=== PATIENT | female | born 1945 | race Caucasian/White ===

== ENCOUNTER 2021-06-24 10:28 | Emergency (ER) | payer MEDICARE, MEDICAID, SELFPAY ==
[2021-06-24] VITALS (35 sets, daily range): BP systolic 123–149; BP diastolic 68–100; PULSE 78–101; RESP 9–29; TEMP 36.4; O2SAT 95–98
--- NOTE | ~2021-06-24 | XR_ITS ---
EXAMINATION: XR chest 2V DATE: 06/24/2021 11:03 INDICATION: Chest pain. Epigastric abdominal pain. TECHNIQUE: Frontal and lateral views of the chest were obtained. COMPARISON: None. FINDINGS: There are airspace opacities in the mid and lower lung zones. No pleural effusion or pneumo thorax. The heart size is normal. IMPRESSION: 1. Airspace opacities in the mid and lower lung zones, consistent with atelectasis versus pneumonia. Reviewed, dictated and finalized at location A. TECHNOLOGIST IMPRESSION: 1. Airspace opacities in the mid and lower lung zones, consistent with atelecta sis versus pneumonia.
--- NOTE | ~2021-06-24 | CT_ITS ---
EXAMINATION:CT diagnostic chest w con DATE: 06/24/2021 12:51 INDICATION: Pneumonia. TECHNIQUE: Computed tomography (CT) of the chest was performed with 75 mL Omnipaque 350 intravenous c ontrast. Automated exposure control and iterative reconstruction technique were employed. The dose-le ngth product (DLP) was 534.83 mGy-cm. COMPARISON: Chest 2 views 06/24/2021 FINDINGS: The lung volumes are small. There is mild atelectasis in the inferior lungs. There are two 4 mm nodules in right middle lobe, likely benign. No pleural effusion. The heart size is normal. Ther e are coronary artery calcifications. No pericardial effusion. There is cortical thinning of the kidn eys. There are cysts in the liver measuring up to 2.0 cm. There is severe thoracic spondylosis. There is a benign bone island in T9 vertebral body. IMPRESSION: 1. Small lung volumes with mild atelectasis in the inferior lungs. Reviewed, dictated and finalized at location A. R BOX CUTTER
--- NOTE | 2021-06-24 10:29 | ECG_ITS ---
Measurements Intervals Alicia Rate: 79 P: 23 GA: 158 QRS: 7 QRSD: 96 T: 53 QT: 421 QTc: 483 Interpretive Statements SINUS RHYTHM LOW QRS VOLTAGE IN PRECORDIAL LEADS BASELINE ARTIFACT- I, II, III, AVR, AVL, AVF, V1-V6 BORDERLINE ECG Electronically Signed On 06-24-2021 17:19:56 INSPECTOR BARREL by Rajendra Jackson D.O.
[2021-06-24 10:54] LABS: Basophils Percent Auto 0.6 % (0.2-1.2); Eosinophils Absolute Auto 0.2 K/mm3 (0-0.3); Hematocrit 36.3 % (37.0-47.0); Immature Granulocyte Absolute 0.01 K/mm3 (0.00-0.031); Immature Granulocyte Percent A 0.3 % (0-0.5); Lymphocytes Absolute Auto 0.99 K/mm3 (0.9-3.2); Lymphocytes Percent Auto 27.7 % (18.3-44.2); Mean Corpuscular HGB Conc 30.3 g/dl (32-36); Mean Corpuscular Hemoglobin 26.6 pg (26-34); Mean Corpuscular Volume 87.9 fl (80-100); Mean Platelet Volume 10.6 fl (7.4-10.4); Monocytes Absolute Auto 0.3 K/mm3 (0.1-0.6); Monocytes Percent Auto 7.3 % (2.6-8.5); Neutrophils Absolute Auto 2.1 K/mm3 (1.3-6.7); Neutrophils Percent Auto 59.1 % (45.5-73.1); Platelet Count Result 200 k/mm3 (150-375); Red Blood Count 4.13 M/mm3 (4.2-5.4); Red Cell Distribution Width 16.1 % (11.5-14.5); White Blood Count 3.6 K/mm3 (4.5-10.0)
[2021-06-24 11:03] LABS: Alanine Aminotransferase 9 U/L (4-35); Albumin Level 3.9 g/dL (3.5-5.1); Alkaline Phosphatase 144 U/L (38-126); Anion Gap 8 mmol/L (8-16); Aspartate Amino Transferase 21 U/L (14-36); Bilirubin,Total 0.3 mg/dL (0.2-1.3); Blood Urea Nitrogen 20 mg/dL (7-17); Calcium 9.6 mg/dL (8.4-10.2); Carbon Dioxide 29 mmol/L (22-30); Chloride 104 mmol/L (98-107); Estimated Glomerular Filt Rate 44; Glucose 117 mg/dL (65-110); Lipase 60 U/L (23-300); Potassium 3.8 mmol/L (3.4-5.0); Sodium 141 mmol/L (137-145)
[2021-06-24 11:08] LABS: INR 1.1; Partial Thromboplastin Time 27.6 SECONDS (22.3-36.8); Prothrombin Time 13.7 Seconds (11.1-14.7)
[2021-06-24 11:15] LABS: Troponin I < 0.012 ng/mL (0.000-0.034)
[2021-06-24] MEDS: ASPIRIN 81 MG CHEWABLE TABLET 324 MG PO (12:11)
--- NOTE | 2021-06-24 12:11 | PC.NURSE ---
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
--- NOTE | 2021-06-24 12:29 | ED.GENADULT ---
HPI - General Adult General Chief complaint: Chest Pain Stated complaint: chest pain/epigastric pain Time Seen by Provider: 06/24/21 11:13 Source: patient Mode of arrival: EMS Limitations: no limitations History of Present Illness HPI narrative: Patient presents for evaluation of chest pain. She indicates she has had pain for several months. She states the pain is in the sternal region and left side and is intermittent, occurring several per day. Pain last several minutes and described as an electric shock . She rates her pain 6 out of 10 in severity. She has a nonproductive cough and mild shortness of breath. She denies any fever, chills, vomiting but she has experienced some nausea. She states she was evaluated in emergency department back in [facility] approximately 1 to 2 months ago for chest pain. She states that she was told that her pain was not related to (her) heart . She states her grandson came and picked her up from [facility] on of last week to bring her down here to her granddaughter's graduation. She has experienced some chest pain since she has been here and asked her granddaughter to call an ambulance today as she felt like she was dehydrated . She has underlying hypertension but denies hyperlipidemia or diabetes. She does not smoke. No underlying history of congestive heart failure. Related Data Allergies Allergy/AdvReac Type Severity Reaction Status Date / Time amoxicillin Allergy Unknown Verified 06/24/21 13:20 Penicillins Allergy Unknown Verified 06/24/21 13:20 Review of Systems Review of Systems: CONSTITUTIONAL: Denies fever, chills, or sweats. EYES: Denies visual changes, redness, or discharge. ENT: Denies rhinorrhea, congestion, sore throat, or otalgia. CARDIOVASCULAR: Reports chest pain. Denies palpitations or edema. RESPIRATORY: Reports nonproductive cough and mild SOB. GASTROINTESTINAL: Reports nausea but denies vomiting. Denies abdominal pain or diarrhea. GENITOURINARY: Denies dysuria or hematuria. SKIN: Denies rash or itching. MUSCULOSKELETAL: Denies back pain, joint pain, or myalgia. NEUROLOGIC: Denies headache, numbness, dizziness, or weakness. PSYCHIATRIC: Denies anxiety or depression. REPLACED BY [facility] Past Medical History Medical History (Updated 06/24/21 @ 14:55 by Gigi Cruz, [facility], ) Hypertension Surgical History Surgical History No pertinent past surgical history Family History Family History Mother No pertinent family history Social History Social History Alcohol intake: never Substance use: never Living arrangements: [facility] Gender identity (if verbalized by the patient): Female Spiritual care concerns: No Exam Narrative: GENERAL: Well-appearing, well-nourished, and in no acute distress. HEAD: Normocephalic, atraumatic. EYES: PERRLA and EOMI. ENT: Nares clear, no rhinorrhea or epistaxis. Mucous membranes moist. Oropharynx without tonsillar hypertrophy exudate or other lesions. Bilateral TMs pearly saha nonbulging NECK: Supple. No adenopathy or masses. No carotid bruits or JVD CHEST: Chest wall is tender to palpation. Clear to auscultation. No respiratory distress. No wheezes rales or rhonchi HEART: Regular rate and rhythm. No murmur heard. Normal peripheral pulses. ABDOMEN: Soft, nontender, nondistended, normal active bowel sounds. EXTREMITIES: Normal range of motion. No edema. SKIN: Warm, dry, no rash. NEURO: No focal deficits. Alert and oriented x3. PSYCH: Normal mood and affect. Course Course Emergency Course: This is a 75-year-old female who presented with complaints of chest pain. She had a recent work-up at a hospital in [place] which was negative for ACS per her reports. Labs were fairly benign. Questionable infiltrate on ch
[2021-06-24 12:43] LABS: Lactic Acid Reflex 0.8 mmol/L (0.7-2.1)
[2021-06-24] MEDS: SODIUM CHLORIDE 0.9% IV 500 ML 999 ML IV CONT (13:54)
--- NOTE | 2021-06-24 15:51 | PCCCNOTE ---
Addendum entered by Karen Dunham RN 06/24/21 18:05: Called back to Tahira @ [phone], she answered and she states that she is in the parking lot, Advised that we will get her ready and wheel her out. Spoke with Dereje rees RN and Chidi Lennon that are in the room with the patient. They are aware and will are getting her ready to go. Addendum entered by Karen Dunham RN 06/24/21 17:31: Ricki is still not here to pickler helper patient. Called to Cosmo, she states from her understanding that Gibsonmike was working on it. Advised if she could help find out and call and give us and update. She agrees. Called to Tahira at [phone] no answer left a vm message Called to Juan x 2 unable to leave a vm, called to Ramsey at [phone], sw Ramsey and advised that it has been over an hour and 1/2 and she is not here. Ramsey states t that he will call family and he has spoken with his mom also. Advised to call back with an update. Addendum entered by Karen Dunham RN 06/24/21 16:12: Phone call received from Cosmo that hunter Hoffmann will be coming to get patient, She will need help getting her in the car. Advised that we can assist. Thanked Cosmo for the follow up call. Original Note: Care Coordination called to assist with transportation, Called to Cosmo at [phone], she states that she lives two hours away and she cannot come, asked who we should call to assist and she states Tahira or Juan. Called to Tahira and there is no answer, community development coordinator leaves a detailed message for return call. Called to Juan at [phone], Juan states that she does not have any gas money, he doesn't drive at night and he has a one year old child that he is the sole provider of. He states that he has been working on it and Tahira is getting ready and will be coming over and if that doesn't work then he is working on another plan. Advised that since he didn't call us that we have to continue to work on finding transportation. Asked Juan if he has the phone number for the ER. Juan confirms the ER smelter charger number and he verbalizes that he will call if plans change.
--- NOTE | 2021-06-24 17:54 | PC.NURSE ---
multiple staff hve reached out to family for dc plans. niece expected at some time. pt waiting for family to take home,
--- NOTE | 2021-06-24 17:55 | PC.NURSE ---
watershed coordinator spoke to family after dc order placed, hopeful of transport home. 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
--- NOTE | 2021-06-24 17:58 | PC.NURSE ---
pt was soiled with urine, has been changed, new linen placed. pt offered food, denied need for food at this time. educated to left staff know when needs are not met, and will be happy to do so
[2021-06-25 19:11] LABS: SARS-CoV-2 RNA PCR Negative
== END 2021-06-24 18:10 | disposition home or self-care (01) ==
PROVIDERS: Emergency Medicine; Emergency Provider Nurse Practitioner
DX: Z20.822 Contact with and (suspected) exposure to COVID-19 (principal); J18.9 Pneumonia, unspecified organism; R07.89 Other chest pain; I10 Essential (primary) hypertension
CPT/HCPCS: 36415; 71046; 71260; 80053; 83605; 83690; 84484; 85025; 85610; 85730; 93005; 96360; 96361; 99284; A9270; C9803; J7040; Q9967; U0003; U0005